=== PATIENT | female | born 1985 | race Caucasian/White ===

== ENCOUNTER 2023-10-15 07:16 | Emergency (ER) | payer OTHER ==
[~2023-10-15] VITALS: Ht 170.1 cm; Wt 79.4 kg
[2023-10-15] MEDS ORDERED: HYDROCODONE-AC1 EAC1 PO (08:28)
== END 2023-10-15 08:31 | disposition home or self-care (01) ==
LOC: ED 07:16
DX: S52.572A Other intraarticular fracture of lower end of left radius, initial encounter for closed fracture (principal); S52.615A Nondisplaced fracture of left ulna styloid process, initial encounter for closed fracture; Z88.8 Allergy status to other drugs, medicaments and biological substances; Y08.89XA Assault by other specified means, initial encounter; Y93.89 Activity, other specified; Y92.89 Other specified places as the place of occurrence of the external cause; Y99.8 Other external cause status